=== PATIENT | female | born 1990 | race Caucasian/White ===

== ENCOUNTER 2023-05-01 10:45 | Outpatient (AMB) | payer OTHER, SELFPAY ==
--- NOTE | 2023-05-01 10:57 | A.OFFPC_ITS ---
Vital Signs 05/01/23 10:59 Height 5 ft 5 in Weight 128 lb 8 oz BMI 21.4 BP 120/74 Blood Pressure Location Lt brachial Position Sitting Pulse 81 Pulse Source Pulse Oximeter Pulse Oximetry (%) 100 Oxygen Delivery Method Room Air Intake Visit Reasons: est care Intake Note: Patient is a new patient here to establish care for Anixety. Transferring care from [facility] . Medical records have not been requested and have not received. Clinical Investigator Required: No Watchguard: Not Required per policy Accompanied by: Self / Same As Patient Allergies procaine [From Novocain] Allergy (Intermediate, Verified 05/01/23 11:20) Rash Medication List - Last Reconciled 05/01/23 by [place] Andres levonorgestrel (Kyleena) intrauterine Tobacco use date assessed: 05/01/23 Dental Screening Dental Screen Date: 05/01/23 Did you have a dental visit in the last 12 months?: No Did you have a dental problem in the last 6 months where you did not have access to dental care?: No Was dental information given to patient?: Patient has dentist HPI HPI Comments History of Present Illness Details 32-year-old female with CARLO, seasonal al lergies, vegan. 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 Overall well. Anxiety - lexapro in past; trintellix most recently. Off meds for 1 year. Admits chronic anxiety. However feels that she can manage without medication or counseling. COUNT INCLUDES THE [facility] Medical History Anxiety Surgical History No pertinent past surgical history Family History Other Mental health disorder Substance use disorder Social History Housing: House Alcohol intake: never Patient Tobacco Use Status: Never used Tobacco e-Cigarette/Vaping Use: Never Used Second Hand Smoke Exposure: No Substance Use Type: Marijuana service: No Current occupational status: employed Current occupation: Teacher Cognitive needs: No Hearing needs: No Vision needs: Yes (contacts) Questionnaire PHQ-9 Over the last 2 weeks, how often have you been bothered by any of the following problems? 1. Little interest or pleasure in doing things: not at all 2. Feeling down, depressed, or hopeless: not at all 3. Trouble falling or staying asleep, or sleeping too much: not at all 4. Feeling tired or having little energy: not at all 5. Poor appetite or overeating: not at all 6. Feeling bad about yourself - or that you are a failure or have let yourself or your family down: not at all 7. Trouble concentrating on things, such as reading the newspaper or watching television: not at all 8. Moving or speaking so slowly that other people could have noticed. Or the opposite - being so fidgety or restless that you have been moving around a lot more than usual: not at all 9. Thoughts that you would be better off or of hurting yourself in some way: not at all Total score: 0 Depression Screening Interpretation: Negative Depression Screening Done: Yes 92887 - PHQ-9 Billing: Yes Source: Developed by Drs. Hermann Wilde, Valerie Chavez, Tate Barry and colleagues, with an educational rdoger from [employer]. Thrive Questionnaire Date Thrive assessed: 05/01/23 I am a: Patient What is your living situation today?: I have a steady place to live Within the past 12 months, did the food you bought not last and you didn't have the money to get more?: Never true Within the past 12 months, did you worry whether your food would run out before you got money to buy more?: Never true Do you have trouble paying for medicines?: No Do you have trouble getting transportation to medical appointments?: No Do you have trouble paying your heating and electricity bill?: No Do you have trouble taking care of your child, family member or friend?: No Do you have trouble with day-to-day activities such as bathing, preparing meals, shopping, managing finances, etc.?: No Are you currently unemployed and looking for a job?: No Are you interested in more education?: No Please select the resources that you would like help with: None Currently or been in a relationship where the following occur: no concerns reported THRIVE Score: 0 AUDIT C Alcohol Use Questionnaire (AUDIT-C) 1. How often do you have a drink containing alcohol?: Never 2. How many drinks containing alcohol do you have on a typical day when you are drinking?: 1 or 2 3. How often do you have six or more drinks on one occasion?: Never Total Score: 0 Score Reviewed/Action Taken: Yes CARLO-7 AMB Questionnaire CARLO-7 Date CARLO - 7 assessed: 05/01/23 Feeling nervous, anxious, or on edge: 1 = Several days Not being able to stop or control worryin = Not at all Worrying too much about different things: 1 = Several days Trouble relaxin = Not at all Being so restless that it is hard to sit still: 0 = Not at all Becoming easily annoyed or irritable: 0 = Not at all Feeling afraid as if something awful might happen: 0 = Not at all Total CARLO-7 score (0-4 normal; 5-9 mild; 10-14 moderate; 15-21 severe): 2 Source: Developed by Drs. Hermann Wilde, Valerie Chavez, Tate Barry and colleagues, with an educational rodger from [employer]. CARLO-7 Assessment Billing CARLO-7 Assessment Tool: CARLO-7 Assessment 31648 Review of Systems Const Details: Constitutional: Denies fever. Skin: Denies rash. Eye: Denies eye pain. ENMT: Denies sore throat and nasal congestion. Respiratory: Denies shortness of breath and cough. Gastrointestinal: Denies nausea, vomiting or abdominal pain. Cardiovascular: Denies chest pain and syncope. Genitourinary: Denies dysuria. Musculoskeletal: Denies back pain and extremity pain. Neurologic: Denies headaches, confusion, and weakness. Psychiatric: Denies suicidal thoughts and substance abuse. Allergy/ Immunologic: Denies impaired immunity. Physical exam (Primary Care) Vital Signs: Last Vital Signs Pulse 81 05/01/23 10:59 BP 120/74 05/01/23 10:59 Pulse Ox 100 05/01/23 10:59 Oxygen Delivery Method Room Air 05/01/23 10:59 BMI result Body Mass Index 21.4 Tobacco/Smoking Status: Tobacco use Status Tobacco use date assessed 05/01/23 05/01/23 11:09 Patient Tobacco Use Status Never used Tobacco 05/01/23 11:11 e-Cigarette/Vaping Use Never Used 05/01/23 11:11 PHQ-9: PHQ-9 Score PHQ-9: Total score 0 05/01/23 11:22 Depression Screening Interpretation: Negative Thrive Assessment: Date of Thrive Assessment Date Thrive assessed 05/01/23 05/01/23 11:09 Currently or been in a relationship where the following occur: no concerns reported Const Other: General: Well developed, well nourished, in no acute distress. Appears stated age. Head: Normocephalic, atraumatic. Eyes: Pupils are equal, round and reactive to light and accommodation. Conjunctivae are clear. Vision grossly normal. Ears: TMs clear AU, EACS WNL Nose: Patent, without discharge. Mouth: There are no ulcers or lesions noted. No inflammation, no post nasal drip, no plaques nor exudates. Neck: Supple, no adenopathy or thyromegaly. Lungs: Clear to auscultation bilaterally. No rales, rhonchi or wheeze noted. Good air flow in all noriega. Heart: Regular rate and rhythm. No murmurs, click, rubs or gallops are noted. Abdomen: Bowel sounds present in all quadrants. The abdomen is soft, nontender, with no masses or organomegaly noted. No hernias are noted. Musculoskeletal: Joints are nontender, without swelling, redness, or effusions. Range of motion is observed to be normal. Pulses: Peripheral pulses are equal and palpable bilaterally. Extremities: No clubbing, cyanosis nor edema is noted. Neurologic: Gait and station normal. Cranial Nerves 2-12 intact. Motor strength grossly symmetrical and intact. No sensory loss. Balance normal. Skin: No rashes, ulcers, or lesions noted. Turgor is good. Skin color is good. Hair and nails are without abnormalities. Psych: Normal eye contact, affect and mood appropriate, and normal in teractions. Patient is alert and appropriate to context. Assessment and Plan Assessment & Plan (1) Physical exam, annual: Code(s): Z00.00 - Encounter for general adult medical examination without abnormal findings (2) Laboratory exam ordered as part of routine general medical examination: Comment: Annual screening labs ordered today. Code(s): Z00.00 - Encounter for general adult medical examination without abnormal findings (3) Vegan diet: Comment: B12 and iron levels ordered via lab. Code(s): Z78.9 - Other specified health status (4) CARLO (generalized anxiety disorder): Comment: Was on Lexapro and Trintellix in the past. Was managed by a counselor and Psychiatry. No longer on any medications or managed by counselor or Psychiatry. She feels her symptoms are well controlled. Code(s): F41.1 - Generalized anxiety disorder Orders: Orders Comprehensive Carmen. Panel Fast Today Z00.00 - Encounter for general adult medical examination without abnormal findings, Z78.9 - Other specified health status TSH reflex Free T4 Today Z00.00 - Encounter for general adult medical ex amination without abnormal findings, Z78.9 - Other specified health status Vitamin D 1,25 dihydroxy Today Z00.00 - Encounter for general adult medical examination without abnormal findings, Z78.9 - Other specified health status Lipid Panel Today Z00.00 - Encounter for general adult medical examination without abnormal findings, Z78.9 - Other specified health status IRON PROFILE Today Z00.00 - Encounter for general adult medical examination without abnormal findings, Z78.9 - Other specified health status Microalbumin, Random (w Creat) Today Z00.00 - Encounter for general adult medical examination without abnormal findings, Z78.9 - Other specified health status Vitamin B12 and Folate Today Z00.00 - Encounter for general adult medical examination without abnormal findings, Z78.9 - Other specified health status Patient Instructions: Health screenings for women ages 18 to 39 You should visit your health care provider from time to time, even if you are healthy. The purpose of these visits is to: Screen for medical issues Assess your risk for future medical problems Encourage a healthy lifestyle Update vaccinations and other preventive care services Help you get to know your provider in case of an illness Information Even if you feel fine, you should still see your provider for regular checkups. These visits can help you avoid problems in the future. For example, the only way to find out if you have high blood pressure is to have it checked regularly. High blood sugar and high cholesterol levels also may not have any symptoms in the early stages. A simple blood test can check for these conditions. There are specific times when you should see your provider or receive specific health screenings. The [place] Preventive Services Task Force publishes a list of recommended screenings. Below are screening guidelines for women ages 18 to 39. BLOOD PRESSURE SCREENING Your blood pressure should be checked at least once every 3 to 5 years if: Your blood pressure is in the normal range (top number less than 120 mm Hg and bottom number less than 80 mm Hg) You don't have risk factors for high blood pressure Ask your provider if you need your blood pressure checked more often if: The top number is 120 to 129 mm Hg or the bottom number is 70 to 79 mm Hg You have diabetes, heart disease, kidney problems, are overweight, or have certain other health conditions You have a first-degree relative with high blood pressure You are Black You had high blood pressure during a If the top number is 130 mm Hg or greater or the bottom number is 80 mm Hg or greater, this is considered stage 1 hypertension. Schedule an appointment with your provider to learn how you can reduce your blood pressure. Watch for blood pressure screenings in your area. Ask your provider if you can stop in to have your blood pressure checked. BREAST CANCER SCREENING Experts do not agree about the benefits of breast self-exams in finding breast cancer or saving lives. Talk to your provider about what is best for you. A screening mammogram is not recommended for most women under age 40. Your provider may discuss and recommend mammograms, MRI scans, or ultrasounds if you have an increased risk for breast cancer, such as: A mother or sister who had breast cancer at a young age (most often starting screening earlier than the age the close relative was diagnosed) You carry a high-risk genetic marker CERVICAL CANCER SCREENING Cervical cancer screening should start at age 21 years unless your provider advises otherwise. After the first test: Women ages 21 through 29 should have a Pap test every 3 years. Exoprts do not agree on whether HPV testing is recommended for this age group. Women ages 30 through 65 should be screened with either a Pap test every 3 years or the HPV test every 5 years or both tests every 5 years (called cotesting ). Women who have been treated for precancer (cervical dysplasia) should continue to have Pap tests for 20 years after treatment or until age 65, whichever is longer. If you have had your uterus and cervix removed (total hysterectomy), and you have not been diagnosed with cervical cancer or precancer (high grade cervical neoplasia), you do not need cervical cancer screening. CHOLESTEROL SCREENING Cholesterol screening should begin at: Age 45 for women with no known risk factors for coronary heart disease Age 20 for women with known risk factors for coronary heart disease Repeat cholesterol screening should take place: Every 5 years for women with normal cholesterol levels More often if changes occur in lifestyle (including weight gain and diet) More often if you have diabetes, heart disease, kidney problems, or certain other conditions DIABETES SCREENING You should be screened for diabetes starting at age 35 and then repeated every 3 years if you have no risk factors for diabetes. Screening may need to start earlier and be repeated more often if you have other risk factors for diabetes, such as: You have a first degree relative with diabetes. You are overweight or have obesity. You have high blood pressure, prediabetes, or a history of heart disease. Screening for diabetes should be done if you are planning to become and you are overweight and have other risk factors such as high blood pressure. DENTAL EXAM Go to the dentist once or twice every year for an exam and cleaning. Your dentist will evaluate if you need more frequent visits. EYE EXAM Have an eye exam every 5 to 10 years before age 40. If you have vision problems, have an eye exam every 2 years or more often if recommended by your provider. You should have an eye exam that includes an examination of your retina (back of your eye) at least every year if you have diabetes. IMMUNIZATIONS Commonly needed vaccines include: Flu shot: get one every year. COVID-19 vaccine: ask your provider what is best for you. Tetanus-diphtheria and acellular pertussis (Tdap) vaccine: have one at or after age 19 as one of your tetanus-diphtheria vaccines if you did not receive it as an adolescent. Tetanus-diphtheria: have a booster (or Tdap) every 10 years. Varicella vaccine: receive 2 doses if you never had chickenpox or the varicella vaccine. Hepatitis B vaccine: receive 2, 3, or 4 doses, depending on your exact circumstances. Measles, mumps, and rubella (MMR) vaccine: receive 1 to 2 doses if you are not already immune to MMR. Your provider can tell you if you are immune. Ask your provider about the human papillomavirus (HPV) vaccine if: You have not received the HPV vaccine in the past You have not completed the full vaccine series (you should catch up on this shot) Ask your provider if you should receive other immunizations if you have certain health problems that increase your risk for some diseases such as pneumonia. INFECTIOUS DISEASE SCREENING Women who are sexually active should be screened for chlamydia and gonorrhea up until age 25. Women 25 years and older should be screened for chlamydia and gonorrhea if at high risk. Screening for hepatitis C: All adults ages 18 to 79 should get a one-time test for hepatitis C. people should be screened at every . Screening for human immunodeficiency virus (HIV): All people ages 15 to 65 should get a one-time test for HIV. Depending on your lifestyle and medical history, you may also need to be screened for infections such as syphilis and HIV, as well as other infections. PHYSICAL EXAM All adults should visit their provider from time to time, even if they are healthy. The purpose of these visits is to: Screen for disease Assess your risk of future medical problems Encourage a healthy lifestyle Update your vaccinations and other preventive care services Maintain a relationship with a provider in case of an illness Your height, weight, and BMI should be checked at every exam. During your exam, your provider may ask you about: Depression and anxiety Diet and exercise Alcohol and tobacco use Safety issues, such as using seat belts, smoke detectors, and intimate partner violence Your medicines and risk for interactions SKIN SELF-EXAM Your provider may check your skin for signs of skin cancer, especially if you're at high risk, such as if you: Have had skin cancer before Have close relatives with skin cancer Have a weakened immune system OTHER SCREENING Talk with your provider about colon cancer screening if you have a strong family history of colon cancer or polyps, or if you have had inflammatory bowel disease or polyps yourself. Routine bone density screening of women under 40 is not recommended. Return to office in 1 year for physical exam sooner as needed Coding Level of Care Code New Pt [facility] Care 40-64y(22314) Diagnoses Physical exam, annual Z00.00 Laboratory exam ordered as part of routine general medical examination Z00.00 Vegan diet Z78.9 CARLO (generalized anxiety disorder) F41.1 Additional Codes CARLO-7 Assessment Billing - CARLO-7 Assessment Tool: CARLO-7 Assessment 42806 ([id number])
[2023-05-01 10:59] VITALS: BP 120/74; PULSE 81; O2SAT 100; BMI 21.4
== END 2023-05-01 11:38 | disposition home or self-care (01) ==
PROVIDERS: PCP Nurse Practitioner Family; Visit Provider Nurse Practitioner Family
DX: Z00.00 Encounter for general adult medical examination without abnormal findings (principal); Z78.9 Other specified health status; F41.1 Generalized anxiety disorder
CPT/HCPCS: 99385

== ENCOUNTER 2023-05-01 11:30 | Outpatient (REF) | payer OTHER, SELFPAY ==
[2023-05-01 15:39] LABS: Creatinine Urine 43.16 mg/dL; Microalbumin Urine < 5.0 mg/L
[2023-05-01 15:46] LABS: Folate 9.7 ng/mL (> or = 4.0); Vitamin B12 1800 pg/mL (200-900)
[2023-05-01 15:51] LABS: Alanine Aminotransferase 12 U/L (0-31); Albumin Level 4.8 g/dL (3.5-5.0); Alkaline Phosphatase 60 U/L (39-117); Anion Gap 11 (12-20); Aspartate Amino Transferase 18 U/L (5-31); Bilirubin Total 0.6 mg/dL (0.0-1.0); Blood Urea Nitrogen 10 mg/dL (9-16); Calcium 9.5 mg/dL (8.4-10.2); Carbon Dioxide 28 mmol/L (22-29); Chloride 104 mmol/L (96-108); Cholesterol 177 mg/dL (<200); Estimated Glomerular Filt Rate > 60; Glucose Fasting 79 mg/dL (60-99); HDL Cholesterol 55 mg/dL (>40); Iron 88 mcg/dL (30-160); LDL Cholesterol Calculated 103 mg/dL (<100); Percent Iron Saturation 30 % (15-50); Potassium 3.4 mmol/L (3.3-5.1); Sodium 140 mmol/L (135-145); Total Iron Binding Capacity 293 mcg/dL (228-428); Total Protein 7.8 g/dL (6.5-8.0); Triglycerides 99 mg/dL (<150); Unsaturated Iron Binding 205 ug/dL
[2023-05-01 16:06] LABS: TSH reflex Free T4 3.06 uIU/mL (0.32-4.0)
[2023-05-06 06:33] LABS: VITAMIN D (1,25 OH) D3 58 pg/mL; Vit D (1,25-Dihydroxy) Total 58 pg/mL (18-72); Vitamin D (1,25 OH) D2 <8 pg/mL
== END 2023-05-01 11:31 | disposition home or self-care (01) ==
LOC: HO.WFDLDS 11:30
PROVIDERS: Visit Provider Nurse Practitioner Family
DX: Z00.00 Encounter for general adult medical examination without abnormal findings (principal); Z78.9 Other specified health status
CPT/HCPCS: 36415; 80053; 80061; 82570; 82607; 82652; 82746; 83540; 84443

== ENCOUNTER 2023-12-27 15:20 | Outpatient (AMB) | payer OTHER, SELFPAY ==
--- NOTE | 2023-12-27 15:21 | A.OFFPC_ITS ---
Vital Signs 12/27/23 15:26 12/27/23 15:52 Height 5 ft 5 in Weight 128 lb BMI 21.3 BP 98/62 Blood Pressure Location Lt brachial Position Sitting Respiration 13 Pulse 103 H 80 Pulse Source Pulse Oximeter Auscultation Pulse Oximetry (%) 99 Oxygen Delivery Method Room Air Intake Visit Reasons: Knee pain cristian 12/12 Intake Note: Patient complaining of left knee pain since september. Allergies procaine [From Novocain] Allergy (Intermediate, Verified 12/27/23 15:40) Rash Medication List - Last Reconciled 12/27/23 by Nannette Lofton, [employer] SALES CONSULTANT- levonorgestrel (Kyleena) intrauterine Tobacco use date assessed: 05/01/23 Dental Screening Dental Screen Date: 05/01/23 HPI HPI Comments History of Present Illness Details 32-year-old female with CARLO, seasonal al jorge sargent. Here today with complaints of left knee pain. Reports an mid September she noticed that her left knee started to hurt while performing her activities of daily living. She leads an active lifestyle of climbing and walking. Her knee pain was worse after performing these activities. She denies any overt injury. She was applying a brace to continue the physical activities but again the pain continued. She did stop climbing 1 month ago and it does feel better. It does swell from time to time. When she sits with her knee bent for awhile it gets worse. The joint feels unstable. She feels guarded when she asked to walk down the stairs or on uneven surfaces. She has been applying ice and elevating the joint but has not taken any medications or applied any topical medications. She denies any fever, chills, redness or warmth to the joint. She is up-to-date on her flu shot received when the season Exam Left lower extremity is neurovascularly intact, the left knee joint is without erythema, warmth. She has full range of motion. Normal strength. She has pain with palpation over the anterior lateral aspect of the knee. There is some localized edema in this area. Plan X-ray of the left knee to be done today. Referral placed to orthopedics. Continue to limit activities that seem to bother the knee pain. Continue ice and elevation. As of the close of this note, Xray not done. Once she completes and result avail will post to portal. This note is constructed using voice recognition software. While every effort has been made to ensure accuracy in ancillary specialist, still errors may have been included Sometimes, these errors may affect the content or meaning of the given sentence . Total time spent caring for the patient today was 30 minutes. This includes time spent before the visit reviewing the chart, time spent during the visit, and time spent after the visit on documentation [facility] Medical History Anxiety Surgical History No pertinent past surgical history Family History Other Mental health disorder Substance use disorder Social History Housing: House Alcohol intake: never Patient Tobacco Use Status: Never used Tobacco e-Cigarette/Vaping Use: Never Used Second Hand Smoke Exposure: No Substance Use Type: Marijuana service: No Current occupational status: employed Current occupation: Teacher Cognitive needs: No Hearing needs: No Vision needs: Yes (contacts) Questionnaire Thrive Questionnaire Date Thrive assessed: 05/01/23 CARLO-7 AMB Questionnaire CARLO-7 Date CARLO - 7 assessed: 05/01/23 Source: Developed by Drs. Hermann Wilde, Valerie Chavez, Tate Barry and colleagues, with an educational rodger from [employer]. Physical exam (Primary Care) Vital Signs: Last Vital Signs Pulse 80 12/27/23 15:52 Resp 13 12/27/23 15:26 BP 98/62 12/27/23 15:26 Pulse Ox 99 12/27/23 15:26 Oxygen Delivery Method Room Air 12/27/23 15:26 BMI result Body Mass Index 21.3 Tobacco/Smoking Status: Tobacco use Status Tobacco use date assessed 05/01/23 12/27/23 15:22 Patient Tobacco Use Status Never used Tobacco 12/27/23 15:22 e-Cigarette/Vaping Use Never Used 12/27/23 15:22 Thrive Assessment: Date of Thrive Assessment Date Thrive assessed 05/01/23 12/27/23 15:22 Coding Level of Care Code Est Pt Level 4 (68418) Complex EM visit Add On G2211 Diagnoses Left anterior knee pain M25.562 Instability of left knee joint M25.362 Assessment & Plan Assessment & Plan (1) Left anterior knee pain: Code(s): M25.562 - Pain in left knee Category: Medical Plan: . (2) Instability of left knee joint: Code(s): M25.362 - Other instability, left knee Category: Medical Plan: . Plan . Orders: Orders XR knee LT 4V 12/27/23 M25.362 - Other instability, left knee, M25.562 - Pain in left knee Referrals Orthopedics Referral M25.362 - Other instability, left knee, M25.562 - Pain in left knee
[2023-12-27 15:26] VITALS: BP 98/62; PULSE 103; RESP 13; O2SAT 99; BMI 21.3
[2023-12-27 15:52] VITALS: PULSE 80
== END 2023-12-27 15:50 | disposition home or self-care (01) ==
PROVIDERS: PCP Nurse Practitioner Family; Visit Provider Nurse Practitioner Family
DX: M25.562 Pain in left knee (principal); M25.362 Other instability, left knee

== ENCOUNTER → 2023-12-27 15:20 | Outpatient (BNVA) | payer OTHER, SELFPAY | PROVIDERS: PCP Nurse Practitioner Family; Visit Provider Nurse Practitioner Family ==

== ENCOUNTER 2025-03-02 09:46 | Outpatient (AMB) | payer OTHER, SELFPAY ==
--- NOTE | 2025-03-02 09:51 | A.OFFPC_ITS ---
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 Allergies procaine (From Novocain) Allergy (Intermediate, Verified 03/02/25 09:52) Rash Medication List - Last Reconciled 03/02/25 by Nannette Lofton, CRUDE OIL DRIVER- levonorgestrel (Kyleena) intrauterine Tobacco use date assessed: 03/02/25 Dental Screening Dental Screen Date: 03/02/25 Did you have a dental visit in the last 12 months?: Yes Did you have a dental problem in the last 6 months where you did not have access to dental care?: No Was dental information given to patient?: Patient has dentist HPI HPI Comments History of Present Illness Details 34-year-old female with CARLO, seasonal al jorge sargent. 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 Generalized Anxiety Disorder: - The patient has a history of anxiety a nd her CARLO-7 score was 6. - She reports that this is her baseline and she feels she is managing well. - She has previously seen a counselor raz vick the winter but is not currently in counseling due to time constraints and not feeling the need for it. Health Maintenance: - Her last Pap smear was in April, and her next appointment is scheduled for this April. - All vaccinations are up to date. - She has been to the dentist. - Her last eye exam was in August, with no changes in her eyes or vision. - She performs self-breast exams. - The patient is due for labs to screen for anemia. - Her left knee pain has resolved. Skin Rash: - The patient has had some small red spl otches on her stomach and back for a few weeks. - The rash is not itchy. - A similar rash occurred previously and resolved on its own; a prescribed antifungal at that time did not help. - Her partner, a manager of tax PA, is mo nitoring it and is not concerned. Contraceptive Management: - The patient uses a Kyleena IUD for con traception and follows up with [facility]. - She does not get menstrual periods due to the IUD. Vegan Diet: - The patient follows a vegan diet. Past Medical History - Anxiety - Seasonal allergies - Allergy to propane - History of left knee pain, now resolve d Past Surgical History - No surgical history reported. Family History - No changes in family history reported. Social History - Occupation: The patient is a teacher. - Diet: Follows a vegan diet. - Exercise: Reports staying active, incl uding climbing. - Substance Use: Audit-C screen was nega tive. - Mental Health: PHQ-9 screen for depres marty was negative. Health Maintenance - Labs will be drawn today to screen for anemia. - The orthopedic referral for prior knee pain will be closed as the issue is resolved. - The patient will continue with her abigail gomez appointments, including her publicity manager visit in April. - Instructed to follow up via the [employer] portal for any problems or changes. Review of Systems - General: Denies any specific complaint s at the start of the visit. - Psychiatric: Reports baseline anxiety but feels she is managing it. - Eyes: Denies changes in vision. - Ears: Denies changes in hearing. - Skin: Reports a non-pruritic rash with small red splotches on her stomach and back. - GI: Reports normal bowel function. - : Reports normal urination. - Endocrine: Reports amenorrhea secondar y to her IUD. - Musculoskeletal: Reports her prior lef t knee pain is resolved. Physical Exam General: Well developed, well nourished, in no acute distress. Appears stated age. Patient has anxiety and follows a vegan diet. Head: Normocephalic, atraumatic. Eyes: Pupils are equal, round and reactive to light and accommodation. Conjunctivae are clear. Scleras nonicteric bilat. Vision grossly normal. Last eye exam in August with no significant changes. Ears: TMs clear AU, EACS WNL. Hearing seems to be fine. Nose: Patent, without discharge. Neck: No carotid bruit bilat. Supple, no adenopathy or thyromegaly. No pain or tenderness. Breast: Edu on SBE. Patient confirms doing self breast exams. Lungs: Clear to auscultation bilaterally. No rales, rhonchi or wheeze noted. Good air flow in all noriega. Heart: Regular rate and rhythm. No murmurs, click, rubs or gallops are noted. Abdomen: Bowel sounds present in all quadrants. The abdomen is soft, nontender, with no masses or organomegaly noted. No hernias are noted. Patient reports no issues with bowel movements or urination. : Deferred. Reviewed recommendations for routine BICYCLE SERVICE TECHNICIAN. Patient has Kyleena IUD and does not have periods. Pulses: Peripheral pulses are equal and palpable bilaterally. Extremities: No clubbing, cyanosis nor edema is noted. No swelling in ankles. Neurologic: Gait and station normal. Cranial Nerves 2-12 intact. Motor strength grossly symmetrical and intact. No sensory loss. Balance normal. Skin: No rashes, ulcers, or lesions noted. Turgor is good. Skin color is good. Hair and nails are without abnormalities. Anterior and posterior trunk are pink plaques with well defined borders Psych: Normal eye contact, affect and mood appropriate, and normal interactions. Patient is alert and appropriate to context. Anxiety is present but managed. CARLO positive at 6. Not currently seeing a counselor. Results - Screening tools: PHQ negative, CARLO pos itive at 6, Audit C negative. - Pap smear (April 2022): Normal. Medical Decision Making The patient is a 34-year-old female presenting for a complete physical exam. She has a history of anxiety, which appears to be at a stable baseline with a CARLO-7 of 6, and she is managing well without current counseling. The patient's left knee pain has resolved, and the associated orthopedic referral will be closed. Given her vegan diet, labs to screen for anemia will be ordered today. A skin rash on her stomach and back was noted; her manager of tax partner is aware and is monitoring it, and it has self-resolved in the past, so no intervention is planned at this time. Her health maintenance is up to date, including a recent normal Pap smear and upcoming BICYCLE SERVICE TECHNICIAN appointment. The physical examination was within normal limits. Plan 1. Generalized Anxiety Disorder - The patient's CARLO-7 score of 6 indicat es mild anxiety, which she considers her baseline. - She is not currently in counseling and feels she is managing well. - Continue to monitor; no changes to man agement at this time. 2. Skin Rash - The rash on her stomach and back is no n-pruritic and is being monitored by her manager of tax partner. - Given the history of spontaneous resol ution and lack of response to prior antifungal treatment, the plan is observation. 3. Contraceptive Management - The patient will continue using her Ky klaus IUD. - She will continue follow-up with her [facility] provider. Patient Instructions - Please go to the lab today to get your blood drawn. - Make sure to stop at the front desk admin fi rst to get your lab order. - If you have any problems or changes in your health, send me a message on the patient portal. - Continue with your regular health appo intments, including your upcoming visit with the publicity manager. - RTO 1 year CPE sooner as needed Consent Patient was informed and verbally consented to the use of an ambient scribe for clinic note documentation during this visit. [facility] Medical History Anxiety Surgical History No pertinent past surgical history Family History Other Mental health disorder Substance use disorder Social History Housing: House Alcohol intake: never Patient Tobacco Use Status: Never used Tobacco e-Cigarette/Vaping Use: Never Used Second Hand Smoke Exposure: No Substance Use Type: Marijuana service: No Current occupational status: employed Current occupation: Teacher Cognitive needs: No Hearing needs: No Vision needs: Yes (contacts) Questionnaire PHQ-9 Over the last 2 weeks, how often have you been bothered by any of the following problems? 1. Little interest or pleasure in doing things: not at all 2. Feeling down, depressed, or hopeless: not at all 3. Trouble falling or staying asleep, or sleeping too much: not at all 4. Feeling tired or having little energy: not at all 5. Poor appetite or overeating: not at all 6. Feeling bad about yourself - or that you are a failure or have let yourself or your family down: not at all 7. Trouble concentrating on things, such as reading the newspaper or watching television: not at all 8. Moving or speaking so slowly that other people could have noticed. Or the opposite - being so fidgety or restless that you have been moving around a lot more than usual: not at all 9. Thoughts that you would be better off or of hurting yourself in some way: not at all Total score: 0 Depression Screening Interpretation: Negative Depression Screening Done: Yes [id number] - PHQ-9 Billing: Yes Source: Developed by Drs. Hermann Wilde, Valerie Chavez, Tate Barry and colleagues, with an educational rodger from [employer]. Thrive Questionnaire Date Thrive assessed: 03/02/25 I am a: Patient What is your living situation today?: I have a steady place to live Within the past 12 months, did the food you bought not last and you didn't have the money to get more?: Never true Within the past 12 months, did you worry whether your food would run out before you got money to buy more?: Never true Do you have trouble paying for medicines?: No Do you have trouble getting transportation to medical appointments?: No Do you have trouble paying your heating and electricity bill?: No Do you have trouble taking care of your child, family member or friend?: No Do you have trouble with day-to-day activities such as bathing, preparing meals, shopping, managing finances, etc.?: No Are you currently unemployed and looking for a job?: No Are you interested in more education?: No Please select the resources that you would like help with: None Currently or been in a relationship where the following occur: No concerns reported THRIVE Score: 0 AUDIT C Alcohol Use Questionnaire (AUDIT-C) 1. How often do you have a drink containing alcohol?: Never 3. How often do you have six or more drinks on one occasion?: Never Total Score: 0 Score Reviewed/Action Taken: Yes CARLO-7 AMB Questionnaire CARLO-7 Date CARLO - 7 assessed: 03/02/25 Feeling nervous, anxious, or on edge: 1 = Several days Not being able to stop or control worryin = Several days Worrying too much about different things: 1 = Several days Trouble relaxin = Not at all Being so restless that it is hard to sit still: 1 = Several days Becoming easily annoyed or irritable: 1 = Several days Feeling afraid as if something awful might happen: 1 = Several days Total CARLO-7 score (0-4 normal; 5-9 mild; 10-14 moderate; 15-21 severe): 6 Source: Developed by Drs. Hermann Wilde, Valerie Chavez, Tate Barry and colleagues, with an educational rodger from [employer]. CARLO-7 Assessment Billing CARLO-7 Assessment Tool: CARLO-7 Assessment 33872 Physical exam (Primary Care) Vital Signs: Last Vital Signs Temp 97.2 F 03/02/25 10:21 Pulse 78 03/02/25 10:21 Resp 12 03/02/25 10:21 BP 101/66 03/02/25 10:21 Pulse Ox 98 03/02/25 10:21 Oxygen Delivery Method Room Air 03/02/25 10:21 BMI result Body Mass Index 21.5 Tobacco/Smoking Status: Tobacco use Status Tobacco use date assessed 03/02/25 03/02/25 09:52 Patient Tobacco Use Status Never used Tobacco 03/02/25 09:52 e-Cigarette/Vaping Use Never Used 03/02/25 09:52 PHQ-9: PHQ-9 Score PHQ-9: Total score 0 03/02/25 09:52 Depression Screening Interpretation: Negative Thrive Assessment: Date of Thrive Assessment Date Thrive assessed 03/02/25 03/02/25 09:52 Currently or been in a relationship where the following occur: No concerns reported Coding Level of Care Code Est Pt Prev Care 18-39y(10879) Add On Preventative Visit Only Diagnoses Adult general medical exam Z00.00 CARLO (generalized anxiety disorder) F41.1 Vegan diet Z78.9 Laboratory exam ordered as part of routine general medical examination Z00.00 Skin rash R21 IUD (intrauterine device) in place Z97.5 History of Papanicolaou smear of cervix Z92.89 Additional Codes CARLO-7 Assessment Billing - CARLO-7 Assessment Tool: CARLO-7 Assessment [id number] ([id number]) PHQ-9 - 83138 - PHQ-9 Billing: Yes ([id number]) Assessment & Plan Assessment & Plan (1) Adult general medical exam: Onset Date: ~03/02/25 Code(s): Z00.00 - Encounter for general adult medical examination without abnormal findings Category: Medical (2) CARLO (generalized anxiety disorder): Comment: Was on Lexapro and Trintellix in the past. Was managed by a counselor and Psychiatry. No longer on any medications or managed by counselor or Psychiatry. She feels her symptoms are well controlled. Code(s): F41.1 - Generalized anxiety disorder Category: Medical (3) Vegan diet: Comment: B12 and iron levels ordered via lab. Code(s): Z78.9 - Other specified health status Category: Medical (4) Laboratory exam ordered as part of routine general medical examination: Comment: Annual screening labs ordered today. Code(s): Z00.00 - Encounter for general adult medical examination without abnormal findings Category: Medical (5) Skin rash: Code(s): R21 - Rash and other nonspecific skin eruption Category: Medical (6) IUD (intrauterine device) in place: Onset Date: ~2021 Code(s): Z97.5 - Presence of (intrauterine) contraceptive device Category: Medical (7) History of Papanicolaou smear of cervix: Onset Date: ~2022 Code(s): Z92.89 - Personal history of other medical treatment Category: Medical Plan . Patient Instructions: Health screenings for women You should visit your health care provider from time to time, even if you are healthy. The purpose of these visits is to: Screen for medical issues Assess your risk for future medical problems Encourage a healthy lifestyle Update vaccinations and other preventive care services Help you get to know your provider in case of an illness Information Even if you feel fine, you should still see your provider for regular checkups. These visits can help you avoid problems in the future. For example, the only way to find out if you have high blood pressure is to have it checked regularly. High blood sugar and high cholesterol levels also may not have any symptoms in the early stages. A simple blood test can check for these conditions. There are specific times when you should see your provider or receive specific health screenings. The [place] Preventive Services Task Force publishes a list of recommended screenings. Below are screening guidelines for women ages 18 to 39. BLOOD PRESSURE SCREENING Your blood pressure should be checked at least once every 3 to 5 years if: Your blood pressure is in the normal range (top number less than 120 mm Hg and bottom number less than 80 mm Hg) You don't have risk factors for high blood pressure Ask your provider if you need your blood pressure checked more often if: The top number is 120 to 129 mm Hg or the bottom number is 70 to 79 mm Hg You have diabetes, heart disease, kidney problems, are overweight, or have certain other health conditions You have a first-degree relative with high blood pressure You are Black You had high blood pressure during a If the top number is 130 mm Hg or greater or the bottom number is 80 mm Hg or greater, this is considered stage 1 hypertension. Schedule an appointment with your provider to learn how you can reduce your blood pressure. Watch for blood pressure screenings in your area. Ask your provider if you can stop in to have your blood pressure checked. BREAST CANCER SCREENING Experts do not agree about the benefits of breast self-exams in finding breast cancer or saving lives. Talk to your provider about what is best for you. A screening mammogram is not recommended for most women under age 40. Your provider may discuss and recommend mammograms, MRI scans, or ultrasounds if you have an increased risk for breast cancer, such as: A mother or sister who had breast cancer at a young age (most often starting screening earlier than the age the close relative was diagnosed) You carry a high-risk genetic marker CERVICAL CANCER SCREENING Cervical cancer screening should start at age 21 years unless your provider advises otherwise. After the first test: Women ages 21 through 29 should have a Pap test every 3 years. Exoprts do not agree on whether HPV testing is recommended for this age group. Women ages 30 through 65 should be screened with either a Pap test every 3 years or the HPV test every 5 years or both tests every 5 years (called cotesting ). Women who have been treated for precancer (cervical dysplasia) should continue to have Pap tests for 20 years after treatment or until age 65, whichever is longer. If you have had your uterus and cervix removed (total hysterectomy), and you have not been diagnosed with cervical cancer or precancer (high grade cervical neoplasia), you do not need cervical cancer screening. CHOLESTEROL SCREENING Cholesterol screening should begin at: Age 45 for women with no known risk factors for coronary heart disease Age 20 for women with known risk factors for coronary heart disease Repeat cholesterol screening should take place: Every 5 years for women with normal cholesterol levels More often if changes occur in lifestyle (including weight gain and diet) More often if you have diabetes, heart disease, kidney problems, or certain other conditions DIABETES SCREENING You should be screened for diabetes starting at age 35 and then repeated every 3 years if you have no risk factors for diabetes. Screening may need to start earlier and be repeated more often if you have other risk factors for diabetes, such as: You have a first degree relative with diabetes. You are overweight or have obesity. You have high blood pressure, prediabetes, or a history of heart disease. Screening for diabetes should be done if you are planning to become and you are overweight and have other risk factors such as high blood pressure. DENTAL EXAM Go to the dentist once or twice every year for an exam and cleaning. Your dentist will evaluate if you need more frequent visits. EYE EXAM Have an eye exam every 5 to 10 years before age 40. If you have vision problems, have an eye exam every 2 years or more often if recommended by your provider. You should have an eye exam that includes an examination of your retina (back of your eye) at least every year if you have diabetes. IMMUNIZATIONS Commonly needed vaccines include: Flu shot: get one every year. COVID-19 vaccine: ask your provider what is best for you. Tetanus-diphtheria and acellular pertussis (Tdap) vaccine: have one at or after age 19 as one of your tetanus-diphtheria vaccines if you did not receive it as an adolescent. Tetanus-diphtheria: have a booster (or Tdap) every 10 years. Varicella vaccine: receive 2 doses if you never had chickenpox or the varicella vaccine. Hepatitis B vaccine: receive 2, 3, or 4 doses, depending on your exact circumstances. Measles, mumps, and rubella (MMR) vaccine: receive 1 to 2 doses if you are not already immune to MMR. Your provider can tell you if you are immune. Ask your provider about the human papillomavirus (HPV) vaccine if: You have not received the HPV vaccine in the past You have not completed the full vaccine series (you should catch up on this shot) Ask your provider if you should receive other immunizations if you have certain health problems that increase your risk for some diseases such as pneumonia. INFECTIOUS DISEASE SCREENING Women who are sexually active should be screened for chlamydia and gonorrhea up until age 25. Women 25 years and older should be screened for chlamydia and gonorrhea if at high risk. Screening for hepatitis C: All adults ages 18 to 79 should get a one-time test for hepatitis C. people should be screened at every . Screening for human immunodeficiency virus (HIV): All people ages 15 to 65 should get a one-time test for HIV. Depending on your lifestyle and medical history, you may also need to be screened for infections such as syphilis and HIV, as well as other infections. PHYSICAL EXAM All adults should visit their provider from time to time, even if they are healthy. The purpose of these visits is to: Screen for disease Assess your risk of future medical problems Encourage a healthy lifestyle Update your vaccinations and other preventive care services Maintain a relationship with a provider in case of an illness Your height, weight, and BMI should be checked at every exam. During your exam, your provider may ask you about: Depression and anxiety Diet and exercise Alcohol and tobacco use Safety issues, such as using seat belts, smoke detectors, and intimate partner violence Your medicines and risk for interactions SKIN SELF-EXAM Your provider may check your skin for signs of skin cancer, especially if you're at high risk, such as if you: Have had skin cancer before Have close relatives with skin cancer Have a weakened immune system OTHER SCREENING Talk with your provider about colon cancer screening if you have a strong family history of colon cancer or polyps, or if you have had inflammatory bowel disease or polyps yourself. Routine bone density screening of women under 40 is not recommended.
[2025-03-02 10:21] VITALS: BP 101/66; PULSE 78; RESP 12; TEMP 36.2; O2SAT 98; BMI 21.5
== END 2025-03-02 10:44 | disposition home or self-care (01) ==
LOC: HO.HMCFM 09:47
PROVIDERS: PCP Nurse Practitioner Family; Visit Provider Nurse Practitioner Family
DX: Z00.00 Encounter for general adult medical examination without abnormal findings (principal); F41.1 Generalized anxiety disorder; Z78.9 Other specified health status; R21 Rash and other nonspecific skin eruption; Z97.5 Presence of (intrauterine) contraceptive device; Z92.89 Personal history of other medical treatment

== ENCOUNTER 2025-03-02 09:46 | Outpatient (REF) | payer OTHER, SELFPAY ==
--- OUTSIDE RECORDS SUMMARY | 2025-03-02 13:31 | XMS_ITS | Patient Health Record ---
Author Organization [facility] Address [address] [place] [address] Care Team Providers Care Nurse Chemical Dependency Name Role Phone HOLLIE LIVINGSTON Primary Care Provider Unavailab Hollie Figuerao Unavailable [phone] Allergies Allergen (clinical drug ingredient) Drug/Non Drug Allergy documented on EMR Reaction Allergy Type Onset Date Status lidocaine Lidocaine rash Drug Allergy Active procaine Procaine rash Drug Allergy Active Reason For Referral No Information Medications Medication SIG (Take, Route, Frequency, Duration) Notes Start Date End Date Status ZyrTEC Active Kyleena Active Trintellix 10 MG Tablet 1 tablet Orally once daily; Duration: 90 days patient will bring leno's coupon 06/28/2020 Active Social History Tobacco Use: Social History Observation Description Date Details (start date - stop date) Former Smoker NA - NA Social History Drugs/Alcohol: Social Info Question Answer Notes Alcohol Screen (Audit-C) Did you have a drink containing alcohol in the past year? Yes How often did you have a drink containing alcohol in the past year? 2 to 3 times a week (3 points) How many drinks did you have on a typical day when you were drinking in the past year? 1 or 2 drinks (0 point) How often did you have 6 or more drinks on one occasion in the past year? Monthly (2 points) Points 5 Interpretation Positive Tobacco Use: Social Info Question Answer Notes Tobacco Use/Smoking Are you a former smoker Problems Problem Type SNOMED Code ICD Code Onset Dates Problem Status W/U Status Risk Notes Problem Generalized anxiety disorder (22527953) Generalized anxiety disorder (F41.1) Active confirmed Problem Annual health maintenance examination (31426511) Annual physical exam (Z00.00) Active confirmed Plan Of Treatment Pending Test Test Name Order Date TSH+Free [id number] 02/10/2020 Comp. Metabolic Panel [id number] 2019 Insurance Providers Payer Name Payer Address Payer Phone Subscriber Number Group Number Insured Name Patient Relationship to Insured Coverage Start Date Coverage End Date [facility] N- HMO/PPO [address] [place] [phone] [id number] Self - patient is the insured Medical (General) History Medical History History ICD Code Generalized anxiety disorder F41.1
[2025-03-02 15:33] LABS: Hematocrit 42.7 % (37.0-47.0); Hemoglobin 14.4 g/dl (12.0-16.0); Mean Corpuscular HGB Conc 33.7 g/dl (31.0-35.0); Mean Corpuscular Hemoglobin 29.9 pg (27.0-33.0); Mean Corpuscular Volume 88.6 fL (80.0-98.0); NRBC Abs Auto 0.000 X10*3/uL (0.0-0.012); NRBC Pct Auto 0.0 /100WBC (0.0-0.2); Platelet Count 297 X10*3/uL (160-400); Red Blood Count 4.82 X10*6/uL (4.20-5.50); White Blood Count 5.6 X10*3/uL (4.8-10.8)
[2025-03-02 16:24] LABS: Alanine Aminotransferase 23 U/L (0-31); Albumin Level 5.1 g/dL (3.5-5.0); Alkaline Phosphatase 59 U/L (39-117); Anion Gap 13 (12-20); Aspartate Amino Transferase 35 U/L (5-31); Blood Urea Nitrogen 14 mg/dL (9-16); Calcium 9.9 mg/dL (8.4-10.2); Carbon Dioxide 25 mmol/L (22-29); Chloride 106 mmol/L (96-108); Cholesterol 198 mg/dL (<200); Estimated Glomerular Filt Rate > 60; HDL Cholesterol 60 mg/dL (>40); Potassium 4.2 mmol/L (3.3-5.1); Sodium 140 mmol/L (135-145); Total Protein 7.7 g/dL (6.5-8.0); Triglycerides 105 mg/dL (<150)
[2025-03-02 17:02] LABS: Folate 9.9 ng/mL (> or = 4.0); Vitamin B12 1151 pg/mL (200-900)
== END 2025-03-02 09:47 | disposition home or self-care (01) ==
LOC: HO.WFDLDS 09:46
PROVIDERS: PCP Nurse Practitioner Family; Visit Provider Nurse Practitioner Family
DX: Z00.00 Encounter for general adult medical examination without abnormal findings (principal); Z13.6 Encounter for screening for cardiovascular disorders; Z13.1 Encounter for screening for diabetes mellitus; F41.1 Generalized anxiety disorder; R21 Rash and other nonspecific skin eruption; Z97.5 Presence of (intrauterine) contraceptive device; Z92.89 Personal history of other medical treatment; Z78.9 Other specified health status
CPT/HCPCS: 36415; 80053; 80061; 82043; 82306; 82570; 82607; 82746; 83036; 84443; 85027; 96127